=== PATIENT | female | born 1970 | race Caucasian/White ===

== ENCOUNTER 2017-02-02 13:54 | Emergency (ER) | payer OTHER ==
--- NOTE | 2017-02-02 15:58 | ED NURSING NOTES ---
Clinical Report - Nurses [facility] [address] [place] [address] 02/02/2017 13:54 Patient: PRIMITIVO ROSE TRIAGE Acuity: LEVEL 3. Chief Complaint: INJURY TO RIGHT FOOT. Alert. No acute distress. SEPSIS SCREEN: Sepsis Screen. Negative (no infection suspected/documented). --14:22 Primitivo Boyd R.N. 14:15 02/02/17. BP: 131/85. HR: 110. RR: 20. O2 saturation: 99% on room air. Temp: 97.8 F (oral). Pain level now: 04/22. --14: Primitivo Boyd R.N. Weight: 73.9 kg stated. Height/Length: 62 inches Per Patient. BMI: 29.8. --14: Primitivo Boyd R.N. Medications Adderall (20mg) Oral (160mg daily). Albuterol Sulfate Inhalation. Cyclobenzaprine HCl Oral. Folic Acid Oral. Gabapentin Oral. Ibuprofen Oral. Lamotrigine Oral 200 mg, q HS. PredniSONE Oral 5 mg, daily, last dose yesterday . Risperdal Oral 1.5 mg, daily. Trazodone HCl Oral 300 mg, at bedtime. --14:20 Primitivo Boyd R.N. Medication/allergy information source: the patient. --14:22 Primitivo Boyd R.N. Allergies Bactim. Morphine Sulfate. Nitrofurauton. --14:20 Primitivo Boyd R.N. Remicade. --14:20 Primitivo Boyd R.N. History Arrived by private vehicle. Historian: patient. Accompanied by spouse. Primary physician ([facility]). This occurred (3 hours ago). ( Pt reports she dropped an 80 lb scuba tank on her right foot.). She has had trouble walking. Treatment TRUCK AND TRANSPORT MECHANIC: Ice. PAST MEDICAL HX: Has had a tubal ligation. SOCIAL HX: Current every day heavy tobacco smoker- 1 pack per day. No alcohol use or drug use. FALL RISK ASSESSMENT: Fall risk assessment completed. No fall risk identified. NUTRITIONAL RISK ASSESSMENT: The nutritional risk assessment revealed no deficiencies. FUNCTIONAL ASSESSMENT: Functional assessment: no impairments noted. LEARNING NEEDS ASSESSMENT: The learning needs assessment revealed no barriers. SKIN INTEGRITY ASSESSMENT: Skin integrity risk assessment completed. No skin integrity risk identified. --14:22 Primitivo Boyd R.N. PROBLEMS: Pneumonia. Asthma. Hypoxia. LNMP - Last Normal Menstrual Period. --14:20 Primitivo Boyd R.N. ADDITIONAL SURGERIES: Adenoidectomy. . Tonsillectomy. Tubal Ligation. --14:20 Primitivo Boyd R.N. Assessment GENERAL / NEURO / PSYCH: Alert. Oriented X 4. Appears in no acute distress. Patient appears calm and cooperative. RESPIRATORY: Respirations not labored. CVS: Capillary refill less than 2 seconds. GI / : Abdomen soft and nontender. SKIN: Mucous membranes are pink. Skin is warm and dry. --14:22 Primitivo Boyd R.N. Interventions ID band on patient. To treatment room. --14: Primitivo Boyd R.N. PHYSICAL ASSESSMENT 14:23 02/02/17. Ambulatory to room. GENERAL / NEURO / PSYCH: Oriented X 4. Alert. Appears in no acute distress. EXTREMITIES: Capillary refill is less than 2 seconds in the extremities. Neuro-vascular status intact to the extremity. Right foot: tenderness, swelling and ecchymosis of the dorsal aspect of the foot and first toe. Limited weight bearing secondary to pain. SKIN: Skin intact. Skin is warm and dry. --14:23 Primitivo Boyd R.N. NURSING PROGRESS NOTES Two patient identifiers checked. Call light placed in reach. Side rails up x 1. Bed placed in lowest position. Brakes of bed on. Patient ready for evaluation- chart flagged and ED physician and PA notified. --14:23 Primitivo Boyd R.N. 16:15. Ortho shoe applied to right foot by tech; distal pulses intact, sensation intact and motor function within normal limits. --16:29 [facility]. DISPOSITION / DISCHARGE Departure time: 1605. Condition at departure: improved. No learning barriers present. Discharge instructions provided and reviewed with the patient. Reviewed medication(s) side effects, precautions, dosing and course information. Prescription(s) given to the patient. Patient verbalized understanding. Written instructions provided in Azeri. The patient was discharged home and accompanied by sports recruiter. She left the Emergency Department ambulatory and via private vehicle. Household Personal Assistant driving. Medication list reviewed and validated. --16:57 Gail Ariza R.N. 16:04 02/02/17. BP: 113/78. HR: 71. RR: 20. O2 saturation: 99% on room air. Temp: deferred. Pain level now: 12/21. 14:15 02/02/17. BP: 131/85. HR: 110. RR: 20. O2 saturation: 99% on room air. Temp: 97.8 F (oral). Pain level now: 04/22. --16:57 Gail Ariza R.N. Locked/Released at 02/02/2017 16:57 by Gail Ariza R.N.
--- NOTE | 2017-02-02 15:58 | ED ORDER SUMMARY ---
..... Patient: PRIMITIVO ROSE OrderSheet [facility] VisitID: [id number] [address] [place] [address] 46y, F Registration Date/Time: 02/02/2017 ORDER SHEET Weight: 73.9 kg (stated) Allergies: Bactim, Morphine Sulfate, Nitrofurauton, Remicade GENERAL ORDERS: Toe Right Urgent (15:09 02/02/2017 Yamileth HERNANDEZ) [facility] (15:32 Lizabeth R.Buck) MEDICATION ORDERS: IV FLUIDS: ORDER SHEET NOTES: [Electronically signed by Gail Ariza R.N. (16:57 02/02/2017)] [Electronically signed by Will Marin MD (13:56 02/04/2017)] [Electronically locked/signed by Gail Ariza R.N. (16:57 02/02/2017)]
--- NOTE | 2017-02-02 15:58 | ED CLINICAL REPORT ---
Clinical Report - Physicians/Mid Levels [facility] [address] [place] [address] 02/02/2017 13:54 Patient: PRIMITIVO ROSE Time Seen: 14:52. Arrived- By private vehicle. Historian- patient. HISTORY OF PRESENT ILLNESS Chief Complaint: Injury to the right great toe. The injury happened just prior to arrival. Occurred at home. ( Pt dropped a scuba tank on her R great toe). Patient is experiencing moderate pain. No other injury. REVIEW OF SYSTEMS The patient complains of pain on weight bearing. She has had swelling. No tingling, numbness, suspected foreign body or skin laceration. PAST HISTORY PROBLEMS: Pneumonia. Asthma. ADDITIONAL SURGERIES: Adenoidectomy. . Tonsillectomy. Tubal Ligation. SOCIAL HISTORY Current every day smoker. ADDITIONAL NOTES The nursing notes have been reviewed. PHYSICAL EXAM Vital Signs: 02/02/2017 16:04 BP: 113/78. HR: 71. RR: 20. O2 saturation: 99%. Pain level now: 310. 02/02/2017 14:15 BP: 131/85. HR: 110. RR: 20. O2 saturation: 99%. Temp: 97.8 F. Pain level now: 7/10. Appearance: Alert. No acute distress. Extremities: Right great toe: moderate tenderness and swelling and medium sized ecchymosis of the distal phalanx. Neurovascular intact distally. No erythema, abrasion, puncture wound, foreign body or deformity. No subungual hematoma or amputation. No ankle injury. Foot and ankle exam otherwise negative. Extremities otherwise negative. Neuro, Vascular and Tendons: Vascular status intact. Sensation intact. Motor intact. LABS, X-RAYS, AND EKG Rt Toes X-ray: (CLOSED COMMINUTED FRACTURE/RR INDICATION: Dropped Scuba tank on right foot. TECHNIQUE: Three views. COMPARISON: None. FINDINGS: Comminuted fracture of the right great toe distal phalanx with slight displacement of the fragments. There are two fracture lines extending to the articular surface with no significant displacement. Moderate right first PIP joint degenerative changes. Smooth deformity of the distal fifth metatarsal which may represent old post-traumatic changes. IMPRESSION: 1. Right great toe distal phalanx comminuted fracture Dictated by: JIM BUSTILLO MD D: DARIAN;02/02/17 4816 <Electronically signed by JIM BUSTILLO MD in OV>). The X-rays were independently viewed by me and interpreted by the radiologist. PROGRESS AND PROCEDURES Splint Application: Pt is fitted with a post op shoe. Disposition: Discharged. Condition: stable. CLINICAL IMPRESSION Nondisplaced distal phalanx fracture of the right 1st toe. (CLOSED AND COMMINUTED). INSTRUCTIONS (ELEVATE AND ICE POST OP SHOE YOUR CRUTCHES WOULD BE HELPFUL). Prescription Medications: Oxycodone/APAP 5 mg/325 mg: take 1 tablet orally every 4 hours. Dispense twelve (12). No refill. Follow-up: Follow up with doctor. Reason for referral: RECHECK IN 5 DAYS. Understanding of the discharge instructions verbalized by patient and family. Follow-up with: Wesly BERTRAND, Podiatry, , [address], [facility] [address] (Electronically signed by Will Marin MD 02/04/2017 13:56)
--- NOTE | 2017-02-02 15:58 | ED CLINICAL REPORT ---
Clinical Report - Physicians/Mid Levels [facility] [address] [place] [address] 02/02/2017 13:54 Patient: PRIMITIVO ROSE Time Seen: 14:52. Arrived- By private vehicle. Historian- patient. HISTORY OF PRESENT ILLNESS Chief Complaint: Injury to the right great toe. The injury happened just prior to arrival. Occurred at home. ( Pt dropped a scuba tank on her R great toe). Patient is experiencing moderate pain. No other injury. REVIEW OF SYSTEMS The patient complains of pain on weight bearing. She has had swelling. No tingling, numbness, suspected foreign body or skin laceration. PAST HISTORY PROBLEMS: Pneumonia. Asthma. ADDITIONAL SURGERIES: Adenoidectomy. . Tonsillectomy. Tubal Ligation. SOCIAL HISTORY Current every day smoker. ADDITIONAL NOTES The nursing notes have been reviewed. PHYSICAL EXAM Vital Signs: 02/02/2017 16:04 BP: 113/78. HR: 71. RR: 20. O2 saturation: 99%. Pain level now: 310. 02/02/2017 14:15 BP: 131/85. HR: 110. RR: 20. O2 saturation: 99%. Temp: 97.8 F. Pain level now: 7/10. Appearance: Alert. No acute distress. Extremities: Right great toe: moderate tenderness and swelling and medium sized ecchymosis of the distal phalanx. Neurovascular intact distally. No erythema, abrasion, puncture wound, foreign body or deformity. No subungual hematoma or amputation. No ankle injury. Foot and ankle exam otherwise negative. Extremities otherwise negative. Neuro, Vascular and Tendons: Vascular status intact. Sensation intact. Motor intact. LABS, X-RAYS, AND EKG Rt Toes X-ray: (CLOSED COMMINUTED FRACTURE/RR INDICATION: Dropped Scuba tank on right foot. TECHNIQUE: Three views. COMPARISON: None. FINDINGS: Comminuted fracture of the right great toe distal phalanx with slight displacement of the fragments. There are two fracture lines extending to the articular surface with no significant displacement. Moderate right first PIP joint degenerative changes. Smooth deformity of the distal fifth metatarsal which may represent old post-traumatic changes. IMPRESSION: 1. Right great toe distal phalanx comminuted fracture Dictated by: JIM BUSTILLO MD D: DARIAN;02/02/17 8816 <Electronically signed by JIM BUSTILLO MD in OV>). The X-rays were independently viewed by me and interpreted by the radiologist. PROGRESS AND PROCEDURES Splint Application: Pt is fitted with a post op shoe. Disposition: Discharged. Condition: stable. CLINICAL IMPRESSION Nondisplaced distal phalanx fracture of the right 1st toe. (CLOSED AND COMMINUTED). INSTRUCTIONS (ELEVATE AND ICE POST OP SHOE YOUR CRUTCHES WOULD BE HELPFUL). Prescription Medications: Oxycodone/APAP 5 mg/325 mg: take 1 tablet orally every 4 hours. Dispense twelve (12). No refill. Follow-up: Follow up with doctor. Reason for referral: RECHECK IN 5 DAYS. Understanding of the discharge instructions verbalized by patient and family. Follow-up with: Wesly BERTRAND, Podiatry, , [address], [place] [address] (Electronically signed by Will Marin MD 02/04/2017 13:56)
--- NOTE | 2017-02-02 15:58 | ED ORDER SUMMARY ---
..... Patient: PRIMITIVO ROSE OrderSheet [facility] VisitID: [id number] [address] [place] [address] 46y, F Registration Date/Time: 02/02/2017 ORDER SHEET Weight: 73.9 kg (stated) Allergies: Bactim, Morphine Sulfate, Nitrofurauton, Remicade GENERAL ORDERS: Toe Right Urgent (15:09 02/02/2017 Yamileth HERNANDEZ) ([facility]ck 15:[facility] (15:32 Lizabeth R.Buck) MEDICATION ORDERS: IV FLUIDS: ORDER SHEET NOTES: [Electronically signed by Gail Ariza R.N. (16:57 02/02/2017)] [Electronically signed by Will Marin MD (13:56 02/04/2017)] [Electronically locked/signed by Gail Ariza R.N. (16:57 02/02/2017)]
--- NOTE | 2017-02-02 15:58 | ED NURSING NOTES ---
Clinical Report - Nurses [facility] [address] [place] [address] 02/02/2017 13:54 Patient: PRIMITIVO ROSE TRIAGE Acuity: LEVEL 3. Chief Complaint: INJURY TO RIGHT FOOT. Alert. No acute distress. SEPSIS SCREEN: Sepsis Screen. Negative (no infection suspected/documented). --14:22 Primitivo Boyd R.N. 14:15 02/02/17. BP: 131/85. HR: 110. RR: 20. O2 saturation: 99% on room air. Temp: 97.8 F (oral). Pain level now: 04/22. --14: Pirmitivo Boyd R.N. Weight: 73.9 kg stated. Height/Length: 62 inches Per Patient. BMI: 29.8. --14: Primitivo Boyd R.N. Medications Adderall (20mg) Oral (160mg daily). Albuterol Sulfate Inhalation. Cyclobenzaprine HCl Oral. Folic Acid Oral. Gabapentin Oral. Ibuprofen Oral. Lamotrigine Oral 200 mg, q HS. PredniSONE Oral 5 mg, daily, last dose yesterday . Risperdal Oral 1.5 mg, daily. Trazodone HCl Oral 300 mg, at bedtime. --14:20 Primitivo Boyd R.N. Medication/allergy information source: the patient. --14:22 Primitivo Boyd R.N. Allergies Bactim. Morphine Sulfate. Nitrofurauton. --14:20 Primitivo Boyd R.N. Remicade. --14:20 Primitivo Boyd R.N. History Arrived by private vehicle. Historian: patient. Accompanied by spouse. Primary physician ([facility] This occurred (3 hours ago). ( Pt reports she dropped an 80 lb scuba tank on her right foot.). She has had trouble walking. Treatment ECHO VASC TECH: Ice. PAST MEDICAL HX: Has had a tubal ligation. SOCIAL HX: Current every day heavy tobacco smoker- 1 pack per day. No alcohol use or drug use. FALL RISK ASSESSMENT: Fall risk assessment completed. No fall risk identified. NUTRITIONAL RISK ASSESSMENT: The nutritional risk assessment revealed no deficiencies. FUNCTIONAL ASSESSMENT: Functional assessment: no impairments noted. LEARNING NEEDS ASSESSMENT: The learning needs assessment revealed no barriers. SKIN INTEGRITY ASSESSMENT: Skin integrity risk assessment completed. No skin integrity risk identified. --14:22 Primitivo Boyd R.N. PROBLEMS: Pneumonia. Asthma. Hypoxia. LNMP - Last Normal Menstrual Period. --14:20 Primitivo Boyd R.N. ADDITIONAL SURGERIES: Adenoidectomy. . Tonsillectomy. Tubal Ligation. --14:20 Primitivo Boyd R.N. Assessment GENERAL / NEURO / PSYCH: Alert. Oriented X 4. Appears in no acute distress. Patient appears calm and cooperative. RESPIRATORY: Respirations not labored. CVS: Capillary refill less than 2 seconds. GI / : Abdomen soft and nontender. SKIN: Mucous membranes are pink. Skin is warm and dry. --14:22 Primitivo Boyd R.N. Interventions ID band on patient. To treatment room. --14: Primitivo Boyd R.N. PHYSICAL ASSESSMENT 14:23 02/02/17. Ambulatory to room. GENERAL / NEURO / PSYCH: Oriented X 4. Alert. Appears in no acute distress. EXTREMITIES: Capillary refill is less than 2 seconds in the extremities. Neuro-vascular status intact to the extremity. Right foot: tenderness, swelling and ecchymosis of the dorsal aspect of the foot and first toe. Limited weight bearing secondary to pain. SKIN: Skin intact. Skin is warm and dry. --14:23 Primitivo Boyd R.N. NURSING PROGRESS NOTES Two patient identifiers checked. Call light placed in reach. Side rails up x 1. Bed placed in lowest position. Brakes of bed on. Patient ready for evaluation- chart flagged and ED physician and PA notified. --14:23 Primitivo Boyd R.N. 16:15. Ortho shoe applied to right foot by tech; distal pulses intact, sensation intact and motor function within normal limits. --16:29 [facility]. DISPOSITION / DISCHARGE Departure time: 1605. Condition at departure: improved. No learning barriers present. Discharge instructions provided and reviewed with the patient. Reviewed medication(s) side effects, precautions, dosing and course information. Prescription(s) given to the patient. Patient verbalized understanding. Written instructions provided in Maltese. The patient was discharged home and accompanied by professional system administrator. She left the Emergency Department ambulatory and via private vehicle. Perfume Maker driving. Medication list reviewed and validated. --16:57 Gail Ariza R.N. 16:04 02/02/17. BP: 113/78. HR: 71. RR: 20. O2 saturation: 99% on room air. Temp: deferred. Pain level now: 12/21. 14:15 02/02/17. BP: 131/85. HR: 110. RR: 20. O2 saturation: 99% on room air. Temp: 97.8 F (oral). Pain level now: 04/22. --16:57 Gail Ariza R.N. Locked/Released at 02/02/2017 16:57 by Gail Ariza R.N.
--- NOTE | 2017-02-02 16:26 | DIAGNOSTIC IMAGING REPORT ---
PROCEDURE: XR TOE - RIGHT INDICATION: Dropped Scuba tank on right foot. TECHNIQUE: Three views. COMPARISON: None. FINDINGS: Comminuted fracture of the right great toe distal phalanx with slight displacement of the fragments. There are two fracture lines extending to the articular surface with no significant displacement. Moderate right first PIP joint degenerative changes. Smooth deformity of the distal fifth metatarsal which may represent old post-traumatic changes. IMPRESSION: 1. Right great toe distal phalanx comminuted fracture
--- NOTE | 2017-02-04 13:56 | ED MAR SUMMARY ---
..... Medication Administration Record [facility] [address] [place], [place] [id number] Patient: PRIMITIVO ROSE Visit ID: [id number] 46y, F Weight: 73.9 kg Height/Length: 62 in BMI: 29.8 ALLERGIES: Remicade, Bactim, Morphine Sulfate, Nitrofurauton
--- NOTE | 2017-02-04 13:56 | ED DISCHARGE INSTRUCTIONS ---
Patient: PRIMITIVO ROSE General Instructions [facility] VisitID: [id number] [place] [address] 46y, F Registration Date/Time: 02/02/2017 Nondisplaced distal phalanx fracture of the right 1st toe. (CLOSED AND COMMINUTED). INSTRUCTIONS (ELEVATE AND ICE POST OP SHOE YOUR CRUTCHES WOULD BE HELPFUL). Prescription Medications: Oxycodone/APAP 5 mg/325 mg: take 1 tablet orally every 4 hours. Dispense twelve (12). No refill. Follow-up: Follow up with doctor. Reason for referral: RECHECK IN 5 DAYS. Understanding of the discharge instructions verbalized by patient and family. Follow-up with: Wesly Sparks DPM, Podiatry, , [address], [place], [address] ADDITIONAL INFORMATION Fracture:Toe [Closed] You have a fracture of your toe (broken toe). This causes local pain, swelling and bruising. This injury takes about four weeks to heal. Toe injuries are often treated by taping the injured toe to the next one ("erica taping"). This protects the injured toe and holds it in position. If the TOENAIL has been severely injured, it may fall off in 1-2 weeks. It takes up to 12 months for a new toenail to grow back. Home Care: 1) You may be given a cast shoe to wear to prevent movement in your toe. If not, you can use a sandal or any shoe that does not put pressure on the injured toe until the swelling and pain go away. If using a sandal, be careful not to strike your foot against anything, since another injury could make the fracture worse. If you were given crutches, do not put full weight on the injured foot until you can do so without pain. 2) Keep your foot elevated to reduce pain and swelling. When sleeping, place a pillow under the injured leg. When sitting, support the injured leg so it is level with your waist. This is very important during the first 48 hours. 3) Apply an ice pack (ice cubes in a plastic bag, wrapped in a towel) over the injured area for 20 minutes every 1-2 hours the first day. Continue with ice packs 3-4 times a day for the next two days, then as needed for the relief of pain and swelling. 4) If erica tape was applied and it becomes wet or dirty, change it. You may replace it with paper, plastic or cloth tape. Cloth tape and paper tapes must be kept dry. 5) You may use acetaminophen (Tylenol) or ibuprofen (Motrin, Advil) to control pain, unless another pain medicine was prescribed. [ NOTE : If you have chronic liver or kidney disease or ever had a stomach ulcer or GI bleeding, talk with your doctor before using these medicines.] 6) You may return to sports or physical education activities after 4 weeks or when you can run without pain. Follow Up With Your Doctor In One Week, Or As Advised By Our Staff, To Be Sure The Bone Is Healing Properly. [NOTE: Any X-rays taken will be reviewed by a radiologist. You will be notified of any new findings that may affect your care.] Get Prompt Medical Attention If Any Of The Following Occur: Increasing pain or swelling Toe becomes cold, blue, numb or tingly Signs of infection: fever, redness, warmth, swelling or drainage from the wound Fever of 100.4F (38C) or higher, or as directed by your healthcare provider Oxycodone Hydrochloride, Acetaminophen Oral tablet What is this medicine? ACETAMINOPHEN; OXYCODONE (a set a FLORES clifford fen; ox i KOE done) is a pain reliever. It is used to treat mild to moderate pain. How should I use this medicine? Take this medicine by mouth with a full glass of water. Follow the directions on the prescription label. Take your medicine at regular intervals. Do not take your medicine more often than directed. Talk to your contact clerk regarding the use of this medicine in children. Special care may be needed. Patients over 65 years old may have a stronger reaction and need a smaller dose. What side effects may I notice from receiving this medicine? Side effects that you should report to your doctor or health wound care specialist as soon as possible: allergic reactions like skin rash, itching or hives, swelling of the face, lips, or tongue breathing difficulties, wheezing confusion light headedness or fainting spells severe stomach pain yellowing of the skin or the whites of the eyes Side effects that usually do not require medical attention (report to your doctor or health wound care specialist if they continue or are bothersome): dizziness drowsiness nausea vomiting What may interact with this medicine? alcohol antihistamines barbiturates like amobarbital, butalbital, butabarbital, methohexital, pentobarbital, phenobarbital, thiopental, and secobarbital benztropine drugs for bladder problems like solifenacin, trospium, oxybutynin, tolterodine, hyoscyamine, and methscopolamine drugs for breathing problems like ipratropium and tiotropium drugs for certain stomach or intestine problems like propantheline, homatropine methylbromide, glycopyrrolate, atropine, belladonna, and dicyclomine general anesthetics like etomidate, ketamine, nitrous oxide, propofol, desflurane, enflurane, halothane, isoflurane, and sevoflurane medicines for depression, anxiety, or psychotic disturbances medicines for sleep muscle relaxants naltrexone narcotic medicines (opiates) for pain phenothiazines like perphenazine, thioridazine, chlorpromazine, mesoridazine, fluphenazine, prochlorperazine, promazine, and trifluoperazine scopolamine tramadol trihexyphenidyl What if I miss a dose? If you miss a dose, take it as soon as you can. If it is almost time for your next dose, take only that dose. Do not take double or extra doses. Where should I keep my medicine? Keep out of the reach of children. This medicine can be abused. Keep your medicine in a safe place to protect it from theft. Do not share this medicine with anyone. Selling or giving away this medicine is dangerous and against the law. Store at room temperature between 20 and 25 degrees C (68 and 77 degrees F). Keep container tightly closed. Protect from light. This medicine may cause accidental overdose and if it is taken by other adults, children, or pets. Flush any unused medicine down the toilet to reduce the chance of harm. Do not use the medicine after the expiration date. What should I tell my health care provider before I take this medicine? They need to know if you have any of these conditions: brain tumor Crohn's disease, inflammatory bowel disease, or ulcerative colitis drink more than 3 alcohol containing drinks per day drug abuse or addiction head injury heart or circulation problems kidney disease or problems going to the bathroom liver disease lung disease, asthma, or breathing problems an unusual or allergic reaction to acetaminophen, oxycodone, other opioid analgesics, other medicines, foods, dyes, or preservatives or trying to get breast-feeding What should I watch for while using this medicine? Tell your doctor or health wound care specialist if your pain does not go away, if it gets worse, or if you have new or a different type of pain. You may develop tolerance to the medicine. Tolerance means that you will need a higher dose of the medication for pain relief. Tolerance is normal and is expected if you take this medicine for a long time. Do not suddenly stop taking your medicine because you may develop a severe reaction. Your body becomes used to the medicine. This does NOT mean you are addicted. Addiction is a behavior related to getting and using a drug for a non-medical reason. If you have pain, you have a medical reason to take pain medicine. Your doctor will tell you how much medicine to take. If your doctor wants you to stop the medicine, the dose will be slowly lowered over time to avoid any side effects. You may get drowsy or dizzy. Do not drive, use machinery, or do anything that needs mental alertness until you know how this medicine affects you. Do not stand or sit up quickly, especially if you are an older patient. This reduces the risk of dizzy or fainting spells. Alcohol may interfere with the effect of this medicine. Avoid alcoholic drinks. There are different types of narcotic medicines (opiates) for pain. If you take more than one type at the same time, you may have more side effects. Give your health care provider a list of all medicines you use. Your doctor will tell you how much medicine to take. Do not take more medicine than directed. Call emergency for help if you have problems breathing. The medicine will cause constipation. Try to have a bowel movement at least every 2 to 3 days. If you do not have a bowel movement for 3 days, call your doctor or health wound care specialist. Do not take Tylenol (acetaminophen) or medicines that have acetaminophen with this medicine. Too much acetaminophen can be very dangerous. Many nonprescription medicines contain acetaminophen. Always read the labels carefully to avoid taking more acetaminophen. You have been given the following additional information: Fracture, Toe [Closed] Oxycodone Hydrochloride, Acetaminophen Oral tablet (Electronically signed by Will Marin MD 02/04/2017 13:56)
--- NOTE | 2017-02-04 13:56 | ED DISCHARGE INSTRUCTIONS ---
Patient: PRIMITIVO ROSE General Instructions [facility] VisitID: [id number] [place] [address] 46y, F Registration Date/Time: 02/02/2017 Nondisplaced distal phalanx fracture of the right 1st toe. (CLOSED AND COMMINUTED). INSTRUCTIONS (ELEVATE AND ICE POST OP SHOE YOUR CRUTCHES WOULD BE HELPFUL). Prescription Medications: Oxycodone/APAP 5 mg/325 mg: take 1 tablet orally every 4 hours. Dispense twelve (12). No refill. Follow-up: Follow up with doctor. Reason for referral: RECHECK IN 5 DAYS. Understanding of the discharge instructions verbalized by patient and family. Follow-up with: Wesly Sparks DPM, Podiatry, , [address], [place], [address] ADDITIONAL INFORMATION Fracture:Toe [Closed] You have a fracture of your toe (broken toe). This causes local pain, swelling and bruising. This injury takes about four weeks to heal. Toe injuries are often treated by taping the injured toe to the next one ("erica taping"). This protects the injured toe and holds it in position. If the TOENAIL has been severely injured, it may fall off in 1-2 weeks. It takes up to 12 months for a new toenail to grow back. Home Care: 1) You may be given a cast shoe to wear to prevent movement in your toe. If not, you can use a sandal or any shoe that does not put pressure on the injured toe until the swelling and pain go away. If using a sandal, be careful not to strike your foot against anything, since another injury could make the fracture worse. If you were given crutches, do not put full weight on the injured foot until you can do so without pain. 2) Keep your foot elevated to reduce pain and swelling. When sleeping, place a pillow under the injured leg. When sitting, support the injured leg so it is level with your waist. This is very important during the first 48 hours. 3) Apply an ice pack (ice cubes in a plastic bag, wrapped in a towel) over the injured area for 20 minutes every 1-2 hours the first day. Continue with ice packs 3-4 times a day for the next two days, then as needed for the relief of pain and swelling. 4) If erica tape was applied and it becomes wet or dirty, change it. You may replace it with paper, plastic or cloth tape. Cloth tape and paper tapes must be kept dry. 5) You may use acetaminophen (Tylenol) or ibuprofen (Motrin, Advil) to control pain, unless another pain medicine was prescribed. [ NOTE : If you have chronic liver or kidney disease or ever had a stomach ulcer or GI bleeding, talk with your doctor before using these medicines.] 6) You may return to sports or physical education activities after 4 weeks or when you can run without pain. Follow Up With Your Doctor In One Week, Or As Advised By Our Staff, To Be Sure The Bone Is Healing Properly. [NOTE: Any X-rays taken will be reviewed by a radiologist. You will be notified of any new findings that may affect your care.] Get Prompt Medical Attention If Any Of The Following Occur: Increasing pain or swelling Toe becomes cold, blue, numb or tingly Signs of infection: fever, redness, warmth, swelling or drainage from the wound Fever of 100.4F (38C) or higher, or as directed by your healthcare provider Oxycodone Hydrochloride, Acetaminophen Oral tablet What is this medicine? ACETAMINOPHEN; OXYCODONE (a set a FLORES clifford fen; ox i KOE done) is a pain reliever. It is used to treat mild to moderate pain. How should I use this medicine? Take this medicine by mouth with a full glass of water. Follow the directions on the prescription label. Take your medicine at regular intervals. Do not take your medicine more often than directed. Talk to your cloth sponger regarding the use of this medicine in children. Special care may be needed. Patients over 65 years old may have a stronger reaction and need a smaller dose. What side effects may I notice from receiving this medicine? Side effects that you should report to your doctor or health out of school hours care worker as soon as possible: allergic reactions like skin rash, itching or hives, swelling of the face, lips, or tongue breathing difficulties, wheezing confusion light headedness or fainting spells severe stomach pain yellowing of the skin or the whites of the eyes Side effects that usually do not require medical attention (report to your doctor or health out of school hours care worker if they continue or are bothersome): dizziness drowsiness nausea vomiting What may interact with this medicine? alcohol antihistamines barbiturates like amobarbital, butalbital, butabarbital, methohexital, pentobarbital, phenobarbital, thiopental, and secobarbital benztropine drugs for bladder problems like solifenacin, trospium, oxybutynin, tolterodine, hyoscyamine, and methscopolamine drugs for breathing problems like ipratropium and tiotropium drugs for certain stomach or intestine problems like propantheline, homatropine methylbromide, glycopyrrolate, atropine, belladonna, and dicyclomine general anesthetics like etomidate, ketamine, nitrous oxide, propofol, desflurane, enflurane, halothane, isoflurane, and sevoflurane medicines for depression, anxiety, or psychotic disturbances medicines for sleep muscle relaxants naltrexone narcotic medicines (opiates) for pain phenothiazines like perphenazine, thioridazine, chlorpromazine, mesoridazine, fluphenazine, prochlorperazine, promazine, and trifluoperazine scopolamine tramadol trihexyphenidyl What if I miss a dose? If you miss a dose, take it as soon as you can. If it is almost time for your next dose, take only that dose. Do not take double or extra doses. Where should I keep my medicine? Keep out of the reach of children. This medicine can be abused. Keep your medicine in a safe place to protect it from theft. Do not share this medicine with anyone. Selling or giving away this medicine is dangerous and against the law. Store at room temperature between 20 and 25 degrees C (68 and 77 degrees F). Keep container tightly closed. Protect from light. This medicine may cause accidental overdose and if it is taken by other adults, children, or pets. Flush any unused medicine down the toilet to reduce the chance of harm. Do not use the medicine after the expiration date. What should I tell my health care provider before I take this medicine? They need to know if you have any of these conditions: brain tumor Crohn's disease, inflammatory bowel disease, or ulcerative colitis drink more than 3 alcohol containing drinks per day drug abuse or addiction head injury heart or circulation problems kidney disease or problems going to the bathroom liver disease lung disease, asthma, or breathing problems an unusual or allergic reaction to acetaminophen, oxycodone, other opioid analgesics, other medicines, foods, dyes, or preservatives or trying to get breast-feeding What should I watch for while using this medicine? Tell your doctor or health out of school hours care worker if your pain does not go away, if it gets worse, or if you have new or a different type of pain. You may develop tolerance to the medicine. Tolerance means that you will need a higher dose of the medication for pain relief. Tolerance is normal and is expected if you take this medicine for a long time. Do not suddenly stop taking your medicine because you may develop a severe reaction. Your body becomes used to the medicine. This does NOT mean you are addicted. Addiction is a behavior related to getting and using a drug for a non-medical reason. If you have pain, you have a medical reason to take pain medicine. Your doctor will tell you how much medicine to take. If your doctor wants you to stop the medicine, the dose will be slowly lowered over time to avoid any side effects. You may get drowsy or dizzy. Do not drive, use machinery, or do anything that needs mental alertness until you know how this medicine affects you. Do not stand or sit up quickly, especially if you are an older patient. This reduces the risk of dizzy or fainting spells. Alcohol may interfere with the effect of this medicine. Avoid alcoholic drinks. There are different types of narcotic medicines (opiates) for pain. If you take more than one type at the same time, you may have more side effects. Give your health care provider a list of all medicines you use. Your doctor will tell you how much medicine to take. Do not take more medicine than directed. Call emergency for help if you have problems breathing. The medicine will cause constipation. Try to have a bowel movement at least every 2 to 3 days. If you do not have a bowel movement for 3 days, call your doctor or health out of school hours care worker. Do not take Tylenol (acetaminophen) or medicines that have acetaminophen with this medicine. Too much acetaminophen can be very dangerous. Many nonprescription medicines contain acetaminophen. Always read the labels carefully to avoid taking more acetaminophen. You have been given the following additional information: Fracture, Toe [Closed] Oxycodone Hydrochloride, Acetaminophen Oral tablet (Electronically signed by Will Marin MD 02/04/2017 13:56)
--- NOTE | 2017-02-04 13:56 | ED MAR SUMMARY ---
..... Medication Administration Record [facility] [address] [place], [place] [id number] Patient: PRIMITIVO ROSE Visit ID: [id number] 46y, F Weight: 73.9 kg Height/Length: 62 in BMI: 29.8 ALLERGIES: Remicade, Bactim, Morphine Sulfate, Nitrofurauton
--- NOTE | 2017-02-04 13:56 | ED MED RECONCILIATION SUMMARY ---
Patient: PRIMITIVO ROSE Medication Reconciliation Report [facility] VisitID: [id number] [address] [place] [address] 46y, F Registration Date/Time: 02/02/2017 Weight: 73.9 kg Height/Length: 62 in. BMI: 29.8 ALLERGIES: Bactim, Morphine Sulfate, Nitrofurauton, Remicade The patient's Home Medications are listed below: THE FOLLOWING MEDICATIONS NEED TO BE RECONCILED: Adderall (20mg) Oral, 160mg daily Albuterol Sulfate Inhalation Cyclobenzaprine HCl Oral Folic Acid Oral Gabapentin Oral Ibuprofen Oral Lamotrigine Oral 200 mg, q HS PredniSONE Oral 5 mg, daily, last dose: yesterday Risperdal Oral 1.5 mg, daily Trazodone HCl Oral 300 mg, at bedtime The source(s) of the original Home Medication information: patient The following Medications were given to the patient in the Emergency Department: None. The following Medications were prescribed to the patient: Oxycodone/APAP 5 mg/325 mg: take 1 tablet orally every 4 hours. Dispense twelve (12). No refill. -- Will Marin MD
--- NOTE | 2017-02-04 13:56 | ED MED RECONCILIATION SUMMARY ---
Patient: PRIMITIVO ROSE Medication Reconciliation Report [facility] VisitID: [id number] [address] [place] [address] 46y, F Registration Date/Time: 02/02/2017 Weight: 73.9 kg Height/Length: 62 in. BMI: 29.8 ALLERGIES: Bactim, Morphine Sulfate, Nitrofurauton, Remicade The patient's Home Medications are listed below: THE FOLLOWING MEDICATIONS NEED TO BE RECONCILED: Adderall (20mg) Oral, 160mg daily Albuterol Sulfate Inhalation Cyclobenzaprine HCl Oral Folic Acid Oral Gabapentin Oral Ibuprofen Oral Lamotrigine Oral 200 mg, q HS PredniSONE Oral 5 mg, daily, last dose: yesterday Risperdal Oral 1.5 mg, daily Trazodone HCl Oral 300 mg, at bedtime The source(s) of the original Home Medication information: patient The following Medications were given to the patient in the Emergency Department: None. The following Medications were prescribed to the patient: Oxycodone/APAP 5 mg/325 mg: take 1 tablet orally every 4 hours. Dispense twelve (12). No refill. -- Will Marin MD
== END 2017-02-02 16:05 | disposition home or self-care (01) ==
LOC: ED SRH 13:54
DX: S92.424A Nondisplaced fracture of distal phalanx of right great toe, initial encounter for closed fracture (principal); W22.8XXA Striking against or struck by other objects, initial encounter; Y93.9 Activity, unspecified; Y99.9 Unspecified external cause status; Y92.009 Unspecified place in unspecified non-institutional (private) residence as the place of occurrence of the external cause; F17.200 Nicotine dependence, unspecified, uncomplicated; J45.909 Unspecified asthma, uncomplicated; Z79.899 Other long term (current) drug therapy; Z88.1 Allergy status to other antibiotic agents; Z88.5 Allergy status to narcotic agent